=== PATIENT | male | born 1960 | race Caucasian/White ===

== ENCOUNTER → 2022-06-23 | Emergency (ER) | payer OTHER ==
[~2022-06-23] VITALS: Ht 177.8 cm; Wt 129.3 kg
[~2022-06-23] MED LIST: BENICAR5 MG
--- NOTE | 2022-06-23 03:30 | NUR ---
PACIENTE ALERTA Y ORIENTADO POR GLYNN. REFIERE 2 HRS CON EL DEBRA ACELERADO.
--- NOTE | 2022-06-23 04:25 | NUR ---
SE ORIENTA PTE SOBRE TX A SEGUIR, EL CUAL REFIERE ENTENDER. SE CONECTA A MONITOR CARDIACO Y OXIMETRIA DE PULSO CONTINUA. SE COLECTAN MUESTRAS DE LAB BAJO MEDIDAS ASEPTICAS. SE CANALIZA EN VLADO MARIELA, ANGIO #18 Y ANGIO #20. SE ADMINISTRAN MEDICAMENTOS FLAKITO ORDEN MEDICA. PEND. PLACA Y U/A
--- NOTE | 2022-06-23 08:11 | NUR ---
SE RECIBE PTE ALERTA Y ORIENTADO POR 3 EN LA UNIDAD DE CENTRO DE DOLOR DE PECHO CONECTADA A MONITOR CARDIACO Y OXYMETRIA PTE ALERTA Y ORIENTADO POR 3 SE OBSERVA VENOPUNCION PANTETE Y HARESH DE EDEMA PTE EN ESPERA DEL DR TREJO, SE REALIZA LAS SEGUNDA TROPONINA Y SE RALIZA EKG Y SE PRESENTA AL DR BE PTE SE MANTIENE EN OBSERVACION Y BAJO TRATAMIENTO.
--- NOTE | 2022-06-23 15:06 | NUR ---
SE RECIBE PTE ALERTA Y ORIENTADO X3 EN PINKY #18 DE UUNIDAD DE CHEST PAIN, PTE CONECTADO A MONITOR CARDIACO CON OXIMETRIA CONTINUA. PTE CON H/L COLOCADO Y DRIP DE CARDIZEM 100G/100ML BAJANDO A 1ML/HR. SE MIDEN S/V A PTE Y SE DOCUMENTAN. PTE EN ESPERA DE CONSULTA CON MEDICINA INTERNA. PTE SE CONTINUA MONITORIANDO POR CAMBIOS.
== END | disposition left against medical advice (07) ==
LOC: ER 03:23 → MEDI 19:18
DX: I48.92 Unspecified atrial flutter (principal); G47.33 Obstructive sleep apnea (adult) (pediatric); I10 Essential (primary) hypertension; Z20.822 Contact with and (suspected) exposure to COVID-19